=== PATIENT | female | born 1950 | race Caucasian/White ===

== ENCOUNTER → 2017-08-13 | Outpatient (CLI) | payer BC, MEDICARE ==
[~2017-08-13] MED LIST: CLOP75TA52 PO; FLUO40CA2 PO; GADOBUTROL 10 MMOL/10 ML PFS ONE; HYDR25TA6 PO; PRAV80TA2 PO
== END | disposition home or self-care (01) ==
LOC: CFH 12:18
PROVIDERS: ATTEND Family Medicine
DX: G45.8 Other transient cerebral ischemic attacks and related syndromes (principal); G31.9 Degenerative disease of nervous system, unspecified; R94.02 Abnormal brain scan
CPT/HCPCS: 70553; A9585

== ENCOUNTER → 2017-08-21 | Outpatient (CLI) | payer BC, MEDICARE ==
[~2017-08-21] MED LIST changes: -GADOBUTROL 10 MMOL/10 ML PFS ONE
== END | disposition home or self-care (01) ==
LOC: CFH 08:14
PROVIDERS: ATTEND Psychiatry & Neurology Neurology
DX: G45.8 Other transient cerebral ischemic attacks and related syndromes (principal)
CPT/HCPCS: 70544; 70547

== ENCOUNTER → 2018-09-11 | Outpatient (CLI) | payer BC, MEDICARE ==
[~2018-09-11] MED LIST changes: +OMNIPAQUE 350 MG/ML, 100ML BOTTLE ONE
== END | disposition home or self-care (01) ==
LOC: MERGE 09:23 → CFH 09:23
PROVIDERS: ATTEND Family Medicine
DX: M47.817 Spondylosis without myelopathy or radiculopathy, lumbosacral region (principal); N28.1 Cyst of kidney, acquired; I25.10 Atherosclerotic heart disease of native coronary artery without angina pectoris; I70.90 Unspecified atherosclerosis; I95.9 Hypotension, unspecified; R53.1 Weakness; R63.0 Anorexia; R63.4 Abnormal weight loss
CPT/HCPCS: 71260; 74177; Q9967